=== PATIENT | male | born 1965 | race Caucasian/White ===

== ENCOUNTER 2021-08-23 01:10 | Emergency (ER) | payer OTHER, SELFPAY ==
[2021-08-23 01:18] VITALS: BP 165/94; PULSE 61; RESP 16; TEMP 36.6; O2SAT 99
--- NOTE | 2021-08-23 01:20 | DI.RAD.S_ITS ---
PROCEDURE: XR FOOT RT MIN 3V INDICATIONS: TECHNIQUE: 3 views of the foot were acquired. COMPARISON: [facility], , ANKLE 3 VIEWS RIGHT, 07/27/2007, 10:16. FINDINGS: Bones: No fractures or dislocations. No suspicious bony lesions. Prior medial calcaneal operative intervention, showing no evidence of device loosening or disruption. Soft tissues: No tibiotalar joint effusion. Achilles tendon appears normal. IMPRESSION: No acute trauma found. Prior operative intervention at the medial aspect of the calcaneus, longstanding in appearance. No evidence of device loosening. Dictated by: Garrett Ramirez M.D. on 08/23/2021 at 1:46 Approved by: Garrett Ramirez M.D. on 08/23/2021 at 1:50
--- NOTE | 2021-08-23 01:32 | ED_ITS ---
HPI - Extremity Injury (Lower) General Chief Complaint: Extremity Injury, Lower Stated Complaint: black/blue rt big toe, aching Time Seen by Provider: 08/23/21 01:19 Source: patient Mode of arrival: Ambulatory History of Present Illness HPI Narrative: Patient is a 56-year-old male here for evaluation of a right toe injury. Yesterday he states that he hit his toe on a rock. Has been ambulatory but over the past couple days has noticed increase discoloration and discomfort. Related Data Allergies Allergy/AdvReac Type Severity Reaction Status Date / Time No Known Allergies Allergy Uncoded 08/23/21 01:20 Review of Systems Musculoskeletal Musculoskeletal: Reports system reviewed and no additional complaints, except as documented and Reports as per HPI Integumentary/Breasts Skin/Breast: Reports system reviewed and no additional complaints, except as documented and Reports as per HPI Neurologic Neurologic: Reports system reviewed and no additional complaints, except as documented Hematologic/Lymphatic On Anticoagulants: No Patient History Medical History Healthy adult Social History Smoking Status: Never smoker Smoking Status: Never smoker alcohol intake frequency: holidays/special occasions only Substance Use Type: does not use Exam Initial Vital Signs Initial Vital Signs: Vital Signs Temperature 97.8 F 08/23/21 01:18 Pulse Rate 61 08/23/21 01:18 Respiratory Rate 16 08/23/21 01:18 Blood Pressure 165/94 H 08/23/21 01:18 Pulse Oximetry 99 08/23/21 01:18 HENMT Head: normal to inspection and normocephalic Cardio Pulses: dorsalis pedis present on the right Skin Other: Discoloration of the right great toe extends from the IP joint to just proximal at the end TP but joint. Neuro General: patient alert and patient awake Sensory Exam: no sensory deficits noted Extrem Other: Pain with movement of the great toe at the IP and MTP joint. Course Orders Ordered: ED Orders 08/23/21 01:20 XR foot RT min 3V Stat Vital Signs Vital signs: Vital Signs - 8 hr 08/23/21 01:18 Temperature 97.8 F Pulse Rate 61 Respiratory Rate 16 Blood Pressure 165/94 H Pulse Oximetry 99 MDM - Extremity Injury (Lower) Imaging Data Extremity x-ray #1: Radiologist's Impression: [address] [address] XRay Report Signed Patient: Franco Chavze MR#: [id number] : 1965 Acct:[id number] Age/Sex: 56 / M Date of Service: 08/23/21 Loc: ED Accession Number: [id number] ?? Procedure: XR foot RT min 3V Ordering Provider: Hudson Preciado D.O. PROCEDURE:? XR FOOT RT MIN 3V ? INDICATIONS: ? ? TECHNIQUE:? 3 views of the foot were acquired.? ? COMPARISON:? [facility], CR, ANKLE 3 VIEWS RIGHT, 07/27/2007, 10:16. ? FINDINGS:? ? Bones:? No fractures or dislocations.? No suspicious bony lesions.? Prior medial calcaneal operative intervention, showing no evidence of device loosening or disruption. ? Soft tissues:? No tibiotalar joint effusion.? Achilles tendon appears normal.? ? ? IMPRESSION:? No acute trauma found.? Prior operative intervention at the medial aspect of the calcaneus, longstanding in appearance.? No evidence of device loosening. ? ? Dictated by: Garrett Ramirez M.D. on 08/23/2021 at 1:46 ? ? Approved by: Garrett Ramirez M.D. on 08/23/2021 at 1:50?? MDM Narrative Medical decision making narrative: Neurovascularly intact, no fractures noted on the x-rays. Discoloration of the skin but no breaks in the skin. Offered a hard sole shoe the patient declined. We did discuss other treatments that he can try at home to include elevation and ice. He was given return precautions. He expressed understanding and agreement. Discharge Plan Departure Patient Disposition: Home Clinical Impression: Contusion of toe of right foot Instructions: Toe Sprain Activity Restrictions/Additional Instructions: There were no fractures noted on the x-rays. You can walk on your foot as tolerated. Keep it elevated. Keep ice over the area. You can take Tylenol /ibuprofen for discomfort. Contact your primary doctor for a follow-up. Return to the emergency department for any new or worsening symptoms. Stand Alone Forms: Work Release Note
[2021-08-23 02:27] VITALS: BP 160/88; PULSE 84; RESP 16; O2SAT 100
== END 2021-08-23 02:28 | disposition home or self-care (01) ==
PROVIDERS: Emergency Provider Emergency Medicine
DX: S90.111A Contusion of right great toe without damage to nail, initial encounter (principal); W22.8XXA Striking against or struck by other objects, initial encounter
CPT/HCPCS: 73630; 99283

== ENCOUNTER 2022-05-06 11:22 | Emergency (ER) | payer OTHER, SELFPAY ==
[2022-05-06 11:36] VITALS: BP 138/100; PULSE 69; RESP 14; TEMP 36.2; O2SAT 100; BMI 31.3
--- NOTE | 2022-05-06 14:50 | ED_ITS ---
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 He states that he has tenderness to palpation, pain with extension of his left shoulder vertically, denies any weakness, numbness or tingling, sensation changes. Denies any shortness of breath or chest pain, denies any nausea, vomiting or any other injury. States that his left pack is tender to palpation and a little swollen with some bruising. He denies any pain deep to this. He denies any other injury. States he has full range of motion of the left shoulder without any other injury. Related Data Previous Rx's Medication Instructions Recorded diclofenac sodium 1 % topical gel 2 g topical QID #100 grams 05/06/22 Allergies Allergy/AdvReac Type Severity Reaction Status Date / Time No Known Drug Allergies Allergy Verified 05/06/22 11:35 Review of Systems <EBONI Delaney - Last Filed: 05/06/22 14:56> Review of Systems Narrative: Review of systems is negative for acute abnormalities unless otherwise noted in HPI Patient History <EBONI Delaney - Last Filed: 05/06/22 14:56> Medical History Healthy adult Social History Smoking Status: Never smoker Smoking Status: Never smoker alcohol intake frequency: holidays/special occasions only Substance Use Type: does not use Exam <EBONI Delaney - Last Filed: 05/06/22 14:56> Narrative Exam Narrative: Reviewed vitals signs and nursing notes. General: cooperative, comfortable, in no acute distress, well groomed HEENT: symmetrical facial expressions, moist mucous membranes Cardiovascular: regular rate and rhythm, no peripheral edema, warm extremities Respiratory: normal effort, able to speak in complete sentences, without wheezing, stridor, or abnormal breath sounds. No retractions or tachypnea. Left pectoralis muscle with tenderness to palpation, mild ecchymosis, no tenderness with palpation of his ribs with anterior and lateral pressure breath sounds clear throughout GI: abdomen soft, nontender to palpation, nondistended, without masses, rebound tenderness or exquisite tenderness with exam. MSK: moves all extremities, neurovascularly intact, no weakness, normal tone Skin: brisk capillary refill, without pallor or erythema Neuro: normal speech and cognition, A&O x3, ambulatory, clear speech Psych: mental status is grossly normal, congruent mood, normal affect, pleasant and cooperative Initial Vital Signs Initial Vital Signs: Vital Signs Temperature 97.1 F L 05/06/22 11:36 Pulse Rate 69 05/06/22 11:36 Respiratory Rate 14 05/06/22 11:36 Blood Pressure 138/100 H 05/06/22 11:36 Pulse Oximetry 100 05/06/22 11:36 Oxygen Delivery Method 05/06/22 11:36 <Faisal Bravo MD - Last Filed: 05/06/22 16:53> Initial Vital Signs Initial Vital Signs: Vital Signs Temperature 97.1 F L 05/06/22 11:36 Pulse Rate 69 05/06/22 11:36 Respiratory Rate 14 05/06/22 11:36 Blood Pressure 138/100 H 05/06/22 11:36 Pulse Oximetry 100 05/06/22 11:36 Oxygen Delivery Method 05/06/22 11:36 Course <EBONI Delaney - Last Filed: 05/06/22 14:56> Vital Signs Vital signs: Vital Signs - 8 hr 05/06/22 11:36 05/06/22 15:23 Temperature 97.1 F L Pulse Rate 69 63 Respiratory Rate 14 20 Blood Pressure 138/100 H 131/89 Pulse Oximetry 100 100 Oxygen Delivery Method Room Air Room Air <Faisal Bravo MD - Last Filed: 05/06/22 16:53> Vital Signs Vital signs: Vital Signs - 8 hr 05/06/22 11:36 05/06/22 15:23 Temperature 97.1 F L Pulse Rate 69 63 Respiratory Rate 14 20 Blood Pressure 138/100 H 131/89 Pulse Oximetry 100 100 Oxygen Delivery Method Room Air Room Air MDM - Skin/Abscess/Foreign Bdy <Hortensia Bonilla [facility] - Last Filed: 05/06/22 14:56> [facility] Narrative Medical decision making narrative: This is a 57-year-old male who presents to the emergency department with a work- related injury of his left pectoralis major. He denies any pain deep to this, only has pain with exacerbation and stretching of this muscle. There is no palpable hematoma, rib fracture, abnormal breath sound, pain deep to the anterior of his left chest or any other associated [place]. [id number], encouraged him to follow-up with [facility], obtain a referral to physical therapy and to Orthopedics for further evaluation. He was given information about pectoralis injury, understands to follow-up [facility] and referred services as needed. Patient has been taking naproxen states this is good relief. He was prescribed diclofenac gel to use associated with this. Patient is appropriate and amenable to discharge home. Vital signs are stable on repeat examination is unremarkable. Patient has been informed of results. Patient has been given strict return to ER precautions for any new or worsening symptoms. Patient understands to follow up closely with outpatient providers as instructed. Patient understands plan and agrees to discharge home. All questions and concerns answered at this time. Discharge Plan Departure Patient Disposition: Home Clinical Impression: Work related injury Pectoralis muscle strain Qualifiers: Encounter type: initial encounter Qualified Code(s): S29.011A - Strain of muscle and tendon of front wall of thorax, initial encounter Instructions: DI for Pectoralis Major Repair Activity Restrictions/Additional Instructions: *You have been diagnosed with a left pectoralis strain/tear. I have added information about repair of this because it may be helpful to treat your pain in the similar ways as directions. Please follow-up with [facility] and ask for referral to physical therapy and to Orthopedics, [facility] is in [place] and [facility] is here in and a [place]. Please ask for referral to these places for evaluation of your left pectoralis major injury. Please use naproxen with food and water as you happened for your pain, warm or cool packs may be helpful as well, you can use topical diclofenac which will potentially help with pain as well. I wish you the best, follow-up with [facility] and good luck to you. [id number], please use this claim number for all of your appointments with your referrals. *What to do: *Please continue to take your regular medications as directed. [ x] New medication prescriptions sent to your pharmacy: [[facility] [place] ] [ ] New medication written as a paper prescription [ ] No new medications given *Please follow up with your primary care provider in 2-3 days, call for an appointment. Let them know you were seen in the Emergency Department and that we asked that you be seen for follow-up. We will electronically transmit a record of today's note if your PCP is in our system *If you do not have a primary care provider please contact [phone] to [facility] with one of the [facility] primary care providers. *Return to Emergency Department if you should have any new, worsening, or concerning symptoms, such as [fever greater than 101F, chills, worsening pain, persistent vomiting or other bothersome symptoms]. Prescriptions: New diclofenac sodium 1 % gel 2 g topical QID Qty: 100 0RF Rx Instructions: apply to single elbow, wrist or hand; for hand includes palm/fingers/back of hand Referrals: [facility] [Provider Group] [facility] [Outside] Provider,[facility]el[facility] SUBRAMAN[facility] [Primary Care Provider] - Visit Report Forms: Patient Portal/API <Faisal Bravo MD - Last Filed: 05/06/22 16:53> Cosign ED Attending Freddy Attestation: I was immediately available in the department for consultation. ?This documentation has been reviewed and I agree with assessment and plan. Supervised by Faisal Bravo MD
[2022-05-06 15:23] VITALS: BP 131/89; PULSE 63; RESP 20; O2SAT 100
== END 2022-05-06 15:15 | disposition home or self-care (01) ==
PROVIDERS: Emergency Provider Nurse Practitioner Critical Care Medicine
DX: S29.011A Strain of muscle and tendon of front wall of thorax, initial encounter (principal); X50.1XXA Overexertion from prolonged static or awkward postures, initial encounter; Y99.0 Civilian activity done for income or pay
CPT/HCPCS: 99281

== ENCOUNTER → 2022-12-01 07:57 | Outpatient (CLI) | payer OTHER, SELFPAY ==
--- NOTE | 2022-12-01 08:05 | DI.RAD.S_ITS ---
PROCEDURE: XR LUMBAR SPINE 2-3V INDICATIONS: SPONDYLOSTHESIS AT L5-S1 TECHNIQUE: 3 views of the lumbar spine were acquired. COMPARISON: [facility], CR, XR LUMBAR SPINE 2 OR 3 VIEWS, 05/27/2022, 15:05. [facility], MR, MR LUMBAR SPINE WITHOUT CONTRAST, 10/09/2022, 10:49. [facility], CR, L-SPINE 2-3 VIEWS, 07/27/2007, 10:08. FINDINGS: Bones: 5 [id number] vertebrae are present. T9-L2 posterior fixation rods present as before. 19 mm anterolisthesis L5 on S1, not significantly changed. 8 mm retrolisthesis L2 on L3 also similar to before. Multilevel degenerative changes of the lumbar spine. Soft tissues: Overlying bowel gas pattern is normal. No suspicious soft tissue calcifications. IMPRESSION: Similar anterolisthesis L5 on S1. Dictated by: Juan Trevizo M.D. on 12/01/2022 at 11:59 Approved by: Juan Trevizo M.D. on 12/01/2022 at 12:07
== END ==
PROVIDERS: Referring Provider Orthopaedic Surgery Orthopaedic Surgery of the Spine; Visit Provider Orthopaedic Surgery Orthopaedic Surgery of the Spine
DX: M43.17 Spondylolisthesis, lumbosacral region (principal)
CPT/HCPCS: 72100

== ENCOUNTER → 2023-02-21 09:10 | Outpatient (CLI) | payer OTHER, SELFPAY ==
[2023-02-21 11:11] LABS: Add Manual Diff / Slide Review NO; Basophils Absolute Auto 100 /uL (0-100); Basophils Percent Auto 1.1 % (0-2); Eosinophils Absolute Auto 100 /uL (0-450); Eosinophils Percent Auto 2.1 % (2-4); Hematocrit 40.6 % (41-53); Hemoglobin 13.9 g/dL (13.5-17.5); Lymphocytes Absolute Auto 1700 /uL (1100-4500); Lymphocytes Percent Auto 31.6 % (25-40); Mean Corpuscular HGB Conc 34.2 % (30-36); Mean Corpuscular Hemoglobin 30.2 PG (26-34); Mean Corpuscular Volume 88.5 fL (80-100); Monocytes Absolute Auto 400 /uL (0-900); Monocytes Percent Auto 7.3 % (3-14); Neutrophils Absolute Auto 3100 /uL (1500-7000); Neutrophils Percent Auto 57.9 % (50-75); Platelet Count 164 X10^3/uL (150-400); Red Blood Cell Count 4.59 X10^6/uL (4.5-5.9); Red Cell Distribution Width 13.5 % (11.6-14.8); White Blood Cell Count 5.4 X10^3/uL (4.5-11.0)
[2023-02-21 11:38] LABS: BUN Creatinine Ratio 16.3 (6-22); Blood Urea Nitrogen 17 mg/dL (9-20); Calcium 9.4 mg/dL (8.4-10.2); Carbon Dioxide 31 mmol/L (22-32); Chloride 103 mmol/L (98-107); Estimated Glomerular Filt Rate > 60 mL/min (>60); Glucose 68 mg/dL (70-100); HEMOLYSIS < 15 (0-50); Potassium 4.3 mmol/L (3.4-5.1); Sodium 141 mmol/L (137-145)
== END ==
PROVIDERS: Referring Provider Orthopaedic Surgery Orthopaedic Surgery of the Spine; Visit Provider Orthopaedic Surgery Orthopaedic Surgery of the Spine
DX: Z01.818 Encounter for other preprocedural examination (principal); Z01.812 Encounter for preprocedural laboratory examination
CPT/HCPCS: 36415; 80048; 85025; 93005

== ENCOUNTER → 2023-03-03 15:25 | Outpatient (CLI) | payer OTHER, SELFPAY ==
--- NOTE | 2023-03-03 15:37 | DI.CT.S_ITS ---
PROCEDURE: CT LUMBAR SPINE WO CON INDICATIONS: Spinal stenosis, lumbar region TECHNIQUE: Noncontrast 3 mm thick sections acquired from the T12 level to the sacrum. Sagittal and coronal reformats were constructed. For radiation dose reduction, the following was used: automated exposure control. COMPARISON: [facility], MR, MR LUMBAR SPINE WITHOUT CONTRAST, 10/09/2022, 10:49. FINDINGS: Image quality: Excellent. Bones: Mild levocurvature of the lumbar spine. Grade 2 anterolisthesis L5 on S1 with bilateral pars interarticularis defects. Grade 1 retrolisthesis of L2 on L3. No acute vertebral body compression fractures. Diffusely decreased osseous mineralization. No suspicious lytic or blastic bony lesions. Posterior stabilization rods extending from T9 through L2. Large Schmorl's node the superior endplate of T12 and T10. There are mild multilevel degenerative changes with mild osteophyte formation and mild facet arthropathy. There is no high-grade osseous central canal stenosis. Soft tissues: No retroperitoneal masses or hematomas. Visualized aorta is normal in caliber. IMPRESSION: 1. Postsurgical changes from elsa stabilization of the thoracolumbar spine. 2. Degenerative changes with grade 1 retrolisthesis of L2 on L3. Grade 2 anterolisthesis of L5 on S1 with bilateral pars interarticularis defects. 3. No high-grade osseous central canal stenosis by CT. Dictated by: Jeffrey Bateman M.D. on 03/03/2023 at 16:31 Approved by: Jeffrey Bateman M.D. on 03/03/2023 at 16:36
== END ==
PROVIDERS: Referring Provider Orthopaedic Surgery Orthopaedic Surgery of the Spine; Visit Provider Orthopaedic Surgery Orthopaedic Surgery of the Spine
DX: M48.062 Spinal stenosis, lumbar region with neurogenic claudication (principal); M43.16 Spondylolisthesis, lumbar region; M47.816 Spondylosis without myelopathy or radiculopathy, lumbar region; Z98.1 Arthrodesis status
CPT/HCPCS: 72131

== ENCOUNTER 2023-03-14 13:32 | Inpatient (IN) | payer OTHER, SELFPAY ==
[2023-03-03 13:59] VITALS: BMI 31.9
[2023-03-14] VITALS (14 sets, daily range): BP systolic 99–145; BP diastolic 42–87; PULSE 75–88; RESP 12–18; TEMP 36.1–37.4; O2SAT 90–99; BMI 31.9
--- NOTE | 2023-03-14 15:23 | PM.PREOP ---
Pre-operative Note COVID-19 Criteria for continued procedure: Expected advancement of disease process, Possibility delay results in more complex future surgery or treatment, Increased loss of function, Continuing or worsening of significant or severe pain, Deterioration of the patient's condition or overall health and Delay expected to result in less-positive ultimate med/surg outcome Interval Note History & Physical reviewed/Exam performed by Physician: Yes Changes to H&P: No
[2023-03-14] MEDS: CEFAZOLIN 2 GM/100 ML PREMIX 100 ML IV (16:23)
[2023-03-14] MEDS: ACETAMINOPHEN IV 1,000 MG/100 ML VIAL 400 MG IV (17:40)
[2023-03-14] MEDS: BUPIVACAINE 0.25% W/ EPI (PF) 10 ML VIAL 20 ML INJ (17:41)
[2023-03-14] MEDS: BUPIVACAINE LIPOSOME 266 MG/20 ML VIAL INJ (17:42)
--- NOTE | 2023-03-14 18:02 | DI.RAD.S_ITS ---
PROCEDURE: XR LUMBAR SPINE 2-3V INDICATIONS: L5-S1 TLIF TECHNIQUE: 2 views of the lumbar spine were acquired. COMPARISON: [facility], , XR LUMBAR SPINE 2-3V, 12/01/2022, 8:11. FINDINGS: 2 intraoperative fluoroscopy images demonstrate discectomy, laminectomy and posterior fusion at L5-S1. There is grade 2 anterolisthesis of L5 on S1. IMPRESSION: Postsurgical changes as described. Dictated by: Jagjit Villegas M.D. on 03/14/2023 at 19:29 Approved by: Jagjit Villegas M.D. on 03/14/2023 at 19:30
--- NOTE | 2023-03-14 19:06 | P.OP_ITS ---
Operative Date/Time/Diagnoses Date of procedure: 03/14/23 Time of procedure: 16:30 Pre-op diagnosis: 1. L5-S1 spondylolisthesis 2. L5-S1 spinal stenosis with radiculopathy Post-op diagnosis: same Procedure & Clinicians Procedure: 1. L5-S1 Postero-lateral and posterior interbody fusion 2. L5-S1 interbody cage placement. 3. L5-S1 decompressive laminectomy with bilateral facetecomies 4. L5-S1 Posterior non-segmental instrumentation 5. [place] of bone marrow from iliac crest 6. Utilization of microsurgical technique and operating microscope 7. Utilization of robotic assisted navigation Same procedure as scheduled: Yes Indications: Patient has been having chronic back pain and worsening lumbar radiculopathy. Patient failed multiple conservative management with worsening pain weakness and numbness in his lower extremity. Patient has been having difficulty performing activity of daily living. After discussing risks benefits of treatment options, patient elected proceed with surgery. Surgeon: Gina Cha Hydrogen Treater: Harper Foy Click Yes if Unassisted: No Anesthesia Type: General Operative Notes Closure Type: primary Specimen(s): none sent Prosthetic devices, grafts, tissues, transplants, or devices: GLobus CREO MIS screws, Rise cage Estimated Blood Loss (mL): 50 Procedure in detail: Patient was seen in the preoperative area. Risks and benefits of the surgery was discussed with the patient. Informed consent was obtained from the patient and placed in the chart. Surgical site was marked. Patient was taken to the operative room. General anesthesia was administered. Prophylactic antibiotic was given to the patient less than 30 min before the incision was made. Patient was placed into a prone position on the Gianfranco table. Patient's back was then prepped and draped in the sterile fashion. Time-out was performed at this time. After patient was prepped and draped, patient's PSIS was palpated and marked bilaterally. Small 1 cm incision was made over the PSIS for placement of the reference probes. Two trocar was placed into the PSIS 1 on each side. The reference probe was attached to the trocar of the reference apparatus. At this time the C-arm imaging was used to confirm AP and lateral of L5-S1 vertebrae and merged the C-arm imaging using the [employer] robotic navigation system with the CT of the lumbar spine. After successful merging was completed and confirmed, skin marker was used to karen out the skin incision using the [employer] robotic arm. Bilateral incision was made at this time. Pre templated trajectory was used and guided using the [employer] robotic navigation system for bilateral L5-S1 pedicle screw placement. This was done by using the robotic arm to guide the high-speed bur to make a cortical entry point. Next a drill was placed also using the robotic arm and guided using the navigation system drilling partially through bilateral L5, S1 pedicles. Next L5-S1 pedicle screws it was pre templated and measured was placed onto the power corporate driver and inserted into the pedicles bilaterally. After all 4 screws were placed C-arm imaging was taken of both AP and lateral to confirm the placement. Excellent placement of the screws were confirmed and a matched precisely with the pre planned screw placement using the navigation system. MARs retractor was inserted using [employer] guidence. Globus MARS retractors was placed inside the incision and docked onto the L5 lamina. Using microsurgical technique and operating microscope, a L5 laminectomy and L5-S1 facetectomy was performed using a Kerrison rongeur. Patient was found have severe lateral recess and neural foramen stenosis which was fully decompressed after the laminectomy facetectomy. The laminectomy and facetectomy was performed in order to decompress patient's cauda equina as well as the nerve roots exiting at the L5-S1 level. More than 75% of the facets were removed during the process of decompression rendering L5-S1 level grossly unstable and required a fusion procedure at the same time. The disc space at L5-S1 was identified, and a total diskectomy was performed at L5-S1 level. The endplates were decorticated using a rasp and shaver. The total diskectomy and decortication was performed at L5-S1 level in order to to accomplish a L5-S1 fusion. The local bone from the laminectomy and facetectomy was saved for local bone grafting. After the total diskectomy and decortication was completed, Trifecta bone graft material was combined with local bone that was harvested earlier. At this time, a separate skin is incision was made over the iliac crest. A Jamshidi needle was inserted into the iliac crest through a separate skin incision. 5 cc of bone marrow aspiration was obtained through the separate skin incision using a Jamshidi needle from the iliac crest. The bone marrow aspiration was combined with local bone and the [employer] bone grafting material. The bone grafting material was placed into the L5-S1 interbody space along with a expandable cage. The cage was expanded to its maximum height using the torque limiting screwdriver. The disc preparation as well as the cage insertion were also performed under navigation guidance. After the cage was placed, AP and lateral C-arm imaging was taken to confirm placement of the cage and excellent position was confirmed. Globus MARS retractor was inserted and docked onto the L5-S1 posterolateral gutter on the right side. Using the power drill, posterior-lateral decortication was performed at L5-S1 level until bleeding cortical bone was identified. The remaining bone grafting material was placed into the L5-S1 posterior lateral gutter he order to accomplish posterolateral fusion at the L5- S1 level. At this time the tulips were attached to the L5-S1 pedicle screw shanks. After measuring the length of the rods, they were inserted into the tulips of the pedicle screws and locked in place using locking caps and torque limiting screwdriver bilaterally. Total 4 caps and 2 titanium rods was used in order to complete the posterior instrumentation construct. After all the hardware was placed, and confirmed with AP and lateral C-arm imaging, the wound was then irrigated with sterile normal saline and packed with Ray-Alyssa gauze for 3 min to accomplish hemostasis. After the gauze was removed the deep fascia was closed with #1 Vicryl suture. The subcutaneous layer was closed with 2-0 Vicryl. The skin was closed with skin arnold. Patient tolerated the procedure well. There were no complications. The Operation could not have been safely performed without compromising the technical result or length of the procedure, without the assistance of a skilled rn surgical pcu. The rn surgical pcu was medically necessary for proper positioning, retraction and manipulation of instruments, proper exposure, surgical preparation, and manipulation of tissue. Neuro monitoring system was used to monitor patient's neurologic status throughout entire procedure. There was no disturbance of the neural monitoring signals throughout the case. Complications: none Post-operative Condition: stable Disposition: PACU Plan for aftercare: Admit to inpatient hospital
[2023-03-14] MEDS: HYDROMORPHONE 0.5 MG INJ IV (21:17)
--- NOTE | 2023-03-14 22:58 | PC.ADMIT ---
1166 [facility] Admission Note: The patient,Franco Chavez,57 y/o, was given written information regarding hospital policies, unit procedures and contact persons. Patient's smoking status: Never smoker. Vital Signs - 8 hr 03/14/23 19:20 03/14/23 19:25 03/14/23 19:31 Temperature 96.9 F L Pulse Rate 82 75 84 Respiratory Rate 16 12 12 Blood Pressure 103/64 110/72 106/68 Pulse Oximetry 90 L 93 96 Oxygen Delivery Method Room Air Room Air Room Air Oxygen Flow Rate 03/14/23 19:38 03/14/23 19:43 03/14/23 19:49 Temperature Pulse Rate 82 76 77 Respiratory Rate 13 13 18 Blood Pressure 112/74 111/66 120/69 Pulse Oximetry 90 L 95 95 Oxygen Delivery Method Room Air Room Air Room Air Oxygen Flow Rate 03/14/23 19:57 03/14/23 20:03 03/14/23 20:20 Temperature 98.3 F Pulse Rate 77 75 79 Respiratory Rate 17 13 16 Blood Pressure 99/42 L 109/58 L 145/71 H Pulse Oximetry 96 91 98 Oxygen Delivery Method Room Air Room Air Oxygen Flow Rate 0 03/14/23 20:50 03/14/23 21:20 03/14/23 21:45 Temperature 97.5 F L 98.2 F Pulse Rate 79 83 Respiratory Rate 18 18 Blood Pressure 122/71 114/69 Pulse Oximetry 94 91 Oxygen Delivery Method Room Air Oxygen Flow Rate 0 0 03/14/23 22:06 Temperature 99.3 F Pulse Rate 78 Respiratory Rate 16 Blood Pressure 115/79 Pulse Oximetry 96 Oxygen Delivery Method Oxygen Flow Rate 0 Patient admitted to room 216 at 2019 from PACU following back surgery earlier today. Is drowsy but responsive. Is alert and oriented. Breath sounds CTA with RA sat of 98% at time of admission. HRR w/BP of 145/71. Denied nausea. BT hypoactive and abdomen is soft. Dressing to back is CDI. Assisted to reposition onto right side with pillows for support at back and between knees; ice applied to back. Bilateral calf SCD's were applied. CMS intact. Did complain of 10/10 pain and was medicated with Dilaudid at 2116 after which he fell asleep. Did awaken and was assisted to get up to side of bed to urinate at 2233. Provided incentive spirometer but not given education related to drowsiness. Fall risk score is high and bed alarm is activated. Oriented to bed controls and call light.
[2023-03-14] MEDS: OXYCODONE IR 10 MG TABLET PO (23:05)
[2023-03-14] MEDS: hydrOXYzine pamoate 25 MG CAPSULE PO (23:05)
[2023-03-14] MEDS: LACTATED RINGERS 1,000 ML 125 ML IV (23:11)
[2023-03-15] MEDS: CEFAZOLIN 2 GM/100 ML PREMIX 100 ML IV ×2 (00:20→09:01)
[2023-03-15 04:29] VITALS: BP 122/66; PULSE 71; RESP 18; TEMP 36.7; O2SAT 97
--- NOTE | 2023-03-15 07:45 | PM.PNPO.1 ---
Subjective Subjective Date Patient Seen: 03/15/23 Time Patient Seen: 07:45 Interval history: Patient's pain is moderate. Denies fever or chills. No nausea or vomiting. Patient has his home to assist him. Exam Vital Signs (past 8 hours): - 03/15/23 04:29 Temperature 98.1 F Pulse Rate 71 Respiratory Rate 18 Blood Pressure 122/66 Pulse Oximetry 97 Oxygen Flow Rate 0 Oxygen Delivery Method Room Air Oxygen Flow Rate 0 Narrative Exam Narrative: 57-year-old male resting comfortably in bed in no apparent distress. Motor functions intact bilateral lower extremities. Const General: cooperative and comfortable Nutritional Appearance: average body habitus Orientation: alert Resp Effort & Inspection: normal respiratory effort and able to speak in complete sentences [facility] Medical History Calcaneus fracture, right (1987) GERD (gastroesophageal reflux disease) Healthy adult History of COVID-19 (~2019) Sciatica Spinal stenosis Surgical History H/O vasectomy (~1992) History of lumbar fusion (1987) History of photorefractive keratectomy (PRK) (2005) Hx of colonoscopy Social History household members: spouse Smoking Status: Never smoker alcohol intake: current Assessment & Plan Post-op Postoperative Procedures: Procedures Operation Date: 03/14/23 15:45 Actual Procedure Side Surgeon p L5-S1 TLIF-Robot Gina Cha MD Postoperative day: 1 Postoperative status: doing well Postoperative plan: routine post-op care Postoperative plan narrative: Disposition likely home today or tomorrow Quality VTE Deep Vein Thrombosis/Pulmonary Embolism Present on Admission: No
[2023-03-15] MEDS: ACETAMINOPHEN 325 MG TABLET 650 MG PO (07:54)
[2023-03-15] MEDS: OXYCODONE IR 10 MG TABLET PO (07:54)
[2023-03-15 08:29] VITALS: BP 116/76; PULSE 69; RESP 17; TEMP 36.6; O2SAT 98
--- NOTE | 2023-03-15 08:47 | OT.IP.EVAL ---
Current Diagnoses Spondylolisthesis, lumbar region (03/14/23) Spinal stenosis, lumbar region without neurogenic claudication (03/14/23) Surgery Performed Operation Date: 03/14/23 15:45 Actual Procedures p L5-S1 TLIF-Robot - Gina Cha MD Past Medical History (Last Reviewed 03/15/23 @ 10:14 by Perry Callejas PA-C) Calcaneus fracture, right (1987) GERD (gastroesophageal reflux disease) Healthy adult History of COVID-19 (~2019) Sciatica Spinal stenosis Surgical History (Last Reviewed 03/15/23 @ 10:14 by Perry Callejas PA-C) H/O vasectomy (~1992) History of lumbar fusion (1987) History of photorefractive keratectomy (PRK) (2005) Hx of colonoscopy Occupational Therapy Inpatient Evaluation/Re-Eval M1 PT/OT-IP Prior Functional Status Start: 03/15/23 09:28 Freq: NEEDED Status: Active Protocol: Document 03/15/23 09:29 [facility] (Rec: 03/15/23 09:42 [facility] [id number]) Medical Review Prior Functional Status Communication Independent. Mobility and Gait Independent with no device but had pain with prolonged sitting and standing. Social History Household Members spouse Living Arrangements House Number of Floors (Floors) Two Floors Number of Stairs To Enter/Railing? 2 steps with posts in the front and 13 steps with bilateral rails to the second floor to his bed room. Home Environment High Toilet,Walk in Shower Home Equipment Front Wheel Walker Additional Social History Comment Pt has a built in shower seat. M2 OT-IP Current Condition Start: 03/15/23 09:28 Freq: Status: Active Protocol: Document 03/15/23 09:29 [facility] (Rec: 03/15/23 09:42 [facility] [id number]) Occupational Therapy Current Condition Current Condition Evaluation Date 03/15/23 Treatment Diagnosis S/p L5-S1 TLIF Diagnosis Onset Date 03/14/23 M3 OT- IP Subjective and Pain Start: 03/15/23 09:28 Freq: Status: Active Protocol: Document 03/15/23 09:29 [facility] (Rec: 03/15/23 09:42 [facility] [id number]) OT- Subjective Occupational Therapy Visit Type Type Initial Evaluation Visit Start Time 08:47 Visit Stop Time 09:27 Total Visit Minutes 40 Occupational Therapy Visit Comments Patient Comments Pt agreed to do OT eval and already sitting in the recliner. Pt's and dad came in at the end of OT eval. OT Pain Assessment Pain When Pain Assessed At Rest Pain Present Pain Present Pain Reported Location Back Intensity 2 Scale Used Numeric (0 - 10) M4 OT- IP ADL's Start: 03/15/23 09:28 Freq: Status: Active Protocol: Document 03/15/23 09:29 [facility] (Rec: 03/15/23 09:42 [facility] [id number]) OT [id number] General Evaluation Self-Feeding Ability Independent OT ADL-Grooming Comments OT Grooming Comments Not performed. OT ADL-Oral Care Comments Oral Care Comments Educated best to spit into a cup or hinge at his hips to best follow his back precautions. OT ADL-Dressing General Eval Lower Body Dressing Ability Standby Assistance Areas Needing Assistance Shoes Comments OT Dressing Comments Educated pt on use of sock aid and photographic process worker. Pt to have his assist and suggested pt get LB dressing equipment. OT ADL-Toileting General Evaluation Toileting Ability Standby Assistance Comments OT Toileting Comments Pt able to sit on the toilet and just needing cues for safety to hinge at his hips and not twist in order to flush the toilet. OT ADL-Bathing Comments OT Bathing Comments Not performed. Suggested pt do a dry run first at home to make sure the built in seat is high enough or to get a shower chair. M5 OT- IP IADL's Start: 03/15/23 09:28 Freq: Status: Active Protocol: Document 03/15/23 09:29 [facility] (Rec: 03/15/23 09:42 [facility] [id number]) OT-Instrumental Activities of Daily Living Deficits IADL Deficits Identified Deficits Home Safety Awareness Awareness of Need for Assistance at Home Good Awareness Ability to Problem Solve Emergency Able to Problem Solve Situations Spa Coordinator Spa Coordinator Caregiver Provides Assist M6 OT- IP Functional Cognition Start: 03/15/23 09:28 Freq: Status: Active Protocol: Document 03/15/23 09:29 [facility] (Rec: 03/15/23 09:42 [facility] [id number]) Cognitive Factors Limiting Selfcare Function Cognitive Ability Level of Alertness Alert Patient Orientation Name,Age,Birthday,Month,Date, Year,Day of Week,Place, Situation Attention Span Ability Capable of Focused Attention, Capable of Sustained Attention Ability to Follow Commands Able to Follow Multi-Step Commands Memory Description No Deficits Noted Safety Awareness Underestimates Need for Assistance Problem Solving Ability No deficits Noted Executive Function Ability No Deficits Noted Cognitive Comments Cognitive Assessment Comments Pt needing initial education for back precautions. Pt needing cues to slow down and incorporate his precautions during ADl and mobility needs. OT- Vision and Hearing OT- Hearing Assessment OT- Hearing Assessment WFL OT- Vision Assessment Visual Acuity Glasses For Reading Visual Attentiveness WFL Occular Pursuits WFL M7 OT- IP Mobility and Balance Start: 03/15/23 09:28 Freq: Status: Active Protocol: Document 03/15/23 09:29 [facility] (Rec: 03/15/23 09:42 [facility] [id number]) OT- Bed Mobility Assessment Rolling Type of Rolling Log Rolling Level of Assistance Standby Assistance Supine to Sit Supine to Sit Assist Standby Assistance Sit to Supine Sit to Supine Assist Standby Assistance Scooting Scooting to Edge of Bed Standby Assistance OT-Transfer Assessment Sit to and From Stand Sit to and from Stand Standby Assistance,Contact Guard Assistance Transfers Transfer Ability Standby Assistance Technique Transfer Destination Bed,Chair,Toilet Transfer Technique Stand Step Pivot Devices Transfer Assistive Devices Gait Belt,Front Wheeled Walker Comments Mobility Comments CGA to stand to FWW and cues to push on the bed to stand. BP sitting 134/97 and after using the bathroom 123/80 and not complaining of any symptoms. O2 on RA 96%. Pt SBA once up and using the FWW. Able to talk through how to [place]/doff the gait belt with pt's . OT- Balance Assessment Sitting Balance and Reactions Static Sitting Balance Ability Normal Dynamic Sitting Balance Ability Good Standing Balance and Reactions Static Standing Balance Ability Good Dynamic Standing Balance Ability Good M9 OT- IP Assessment and Plan Start: 03/15/23 09:28 Freq: Status: Active Protocol: Document 03/15/23 09:29 [facility] (Rec: 03/15/23 09:42 [facility] [id number]) OT Summary Assessment and Plan Potential Rehabilitation Potential Excellent Analytic Complexity at Evaluation Low Summary OT Impairments Pain,Functional Mobility, Dressing,Bathing,Shower Transfers Progress Towards Goals Progressing Toward Goals Assessment Summary Pt low complexity and main barrier is stairs. Pt has a supportive and elderly dad to assist him at home. Pt looking to go home when medically stable. Goals Grooming Goal Independent Dressing Goal Independent Toileting Goal Independent Bathing Goal Independent Toilet Transfer Goal Independent Shower Transfer Goal Independent Days to Meet Goals 5 Frequency of Treatment Frequency Of Treatment Once a Day Treatment Plan OT Treatment Plan ADL Training,Functional Mobility,Patient/Family Education,Discharge Planning Discharge Recommendations OT Discharge Recommendations Home with Assistance Home Equipment Needs possibly a shower chair Transportation Needs at Discharge Private Vehicle
[2023-03-15] MEDS: PANTOPRAZOLE DR 20 MG TABLET PO (09:01)
[2023-03-15] MEDS: LORATADINE 10 MG TABLET PO (09:01)
[2023-03-15] MEDS: DOCUSATE 100 MG CAPSULE PO (09:01)
[2023-03-15] MEDS: polyethylene glycoL 3350 17 GM POWD.PACK PO (09:01)
--- NOTE | 2023-03-15 10:10 | PT.IIE ---
Current Diagnoses Spondylolisthesis, lumbar region (03/14/23) Spinal stenosis, lumbar region without neurogenic claudication (03/14/23) Surgery Performed Operation Date: 03/14/23 15:45 Actual Procedures p L5-S1 TLIF-Robot - Gina Cha MD Surgical History (Last Reviewed 03/15/23 @ 10:14 by Perry Callejas PA-C) H/O vasectomy (~1992) History of lumbar fusion (1987) History of photorefractive keratectomy (PRK) (2005) Hx of colonoscopy Medical History (Last Reviewed 03/15/23 @ 10:14 by Perry Callejas PA-C) Calcaneus fracture, right (1987) GERD (gastroesophageal reflux disease) Healthy adult History of COVID-19 (~2019) Sciatica Spinal stenosis Physical Therapy Inpatient Evaluation/Re-Eval M1 PT/OT-IP Prior Functional Status Start: 03/15/23 09:28 Freq: NEEDED Status: Discharge Protocol: Document 03/15/23 09:29 [facility] (Rec: 03/15/23 09:42 [facility] [id number]) Medical Review Prior Functional Status Communication Independent. Mobility and Gait Independent with no device but had pain with prolonged sitting and standing. Social History Household Members spouse Living Arrangements House Number of Floors (Floors) Two Floors Number of Stairs To Enter/Railing? 2 steps with posts in the front and 13 steps with bilateral rails to the second floor to his bed room. Home Environment High Toilet,Walk in Shower Home Equipment Front Wheel Walker Additional Social History Comment Pt has a built in shower seat. M1 PT/OT-IP Prior Functional Status Start: 03/15/23 13:43 Freq: NEEDED Status: Active Protocol: Document 03/15/23 10:10 [facility] (Rec: 03/15/23 13:52 [facility] [id number]) Medical Review Prior Functional Status Medical History Reviewed Yes Communication able to make needs known Mobility and Gait pt stated that he is inpendent with all mobilities and ambulation without AD Social History Household Members spouse,family Living Arrangements House Number of Floors (Floors) Two Floors Number of Stairs To Enter/Railing? 2 platform steps to enter the house 13 steps B rails to get to 2nd floor bedroom Home Environment High Toilet,Walk in Shower, Built-In Shower Seat Home Equipment Front Wheel Walker,Hand Held Shower Employment Status [employer] Employed Additional Social History Comment pt works as a chief of police M2 PT-IP Current Condition Start: 03/15/23 13:43 Freq: NEEDED Status: Active Protocol: Document 03/15/23 10:10 [facility] (Rec: 03/15/23 13:52 [facility] [id number]) Physical Therapy Current Condition Current Condition Evaluation Date 03/15/23 Treatment Diagnosis s/p L5S1 TLIF; difficulty in walking Onset Date 03/14/23 M3 PT-IP Subjective Start: 03/15/23 13:43 Freq: NEEDED Status: Active Protocol: Document 03/15/23 10:10 [facility] (Rec: 03/15/23 13:52 [facility] [id number]) Subjective Physical Therapy Visit Type Type Initial Evaluation Visit Start Time 10:10 Visit Stop Time 10:36 Total Visit Minutes 26 Number of POLITICAL DIRECTOR Visits 0 Physical Therapy Visit Comments Patient Comments agreeable to do PT Therapy Pain Assessment Pain When Pain Assessed At Rest Pain Present Pain Present Pain Reported Location Back Intensity 2 Scale Used Numeric (0 - 10) Pain Management Techniques Apply Cold,Distraction, Modification of Treatment,Re- positioning,Timing of Activity with Medications M4 PT-IP Mobility and Gait Start: 03/15/23 13:43 Freq: NEEDED Status: Active Protocol: Document 03/15/23 10:10 [facility] (Rec: 03/15/23 13:52 [facility] [id number]) PT-Bed Mobility Assessment Rolling Type of Rolling Log Rolling Level of Assist Standby Assistance Supine to Sit Supine to Sit Standby Assistance Sit to Supine Sit to Supine Standby Assistance PT-Transfer Assessment Sit to and From Stand Sit to and from Stand Standby Assistance Equipment Transfer Assistive Device Gait Belt,Front Wheeled Walker Orthotic/Prosthetic Devices or Brace: No Transfers Transfer Destination Bed Transfer Technique ambulated Transfer Ability Level of Assist Standby Assistance,1 Person Assistance,Use of Upper Extremities Comments Mobility Comments pt sitting on the chair. spouse and pt's father in room with pt. pt able to recall his back precautions. completed sit to stand from the chair SBA and ambulated in room ~ 30 ft using FWW SBA. sat on EOB and demonstrated log roll sit<>supine SBA. pt agreed to do stairs. sit to stand from EOB SBA and ambulated towards the stairs using FWW SBA. pt with antalgic gait with increase LLE ER. cued pt to correct. pt completed up/down platform step using FWW SBA to CGA with cues and repeated again without cues needed. pt completed up/down steps using B rails SBA. pt ambulated back to his room using FWW SBA and sat back on the chair. positioned on the chair. call light and table placed within reach. pt and family without further concerns. Gait Assessment Gait Gait Assistance Required: Standby Assistance Distance (Feet) 200 Able to Maintain Weight Bearing Status Yes During Gait Assistive Devices Assistive Device Gait Belt,Front Wheeled Walker Orthotic/Prosthetic Devices or Brace: No Gait Deviations General Gait Pattern Decreased Stride Length, Decreased Feet Clearance Factors Limiting Gait Function Factors Limiting Gait Function Decreased Activity Tolerance, Decreased Strength,Limited Range of Motion,Pain,Poor Balance Stair Climbing Assessment Evaluation Level of Assist On Stairs Contact Guard Assistance,1 Person Assistance Devices Stair Climbing Assistive Devices Front Wheel Walker,Left Railing,Right Railing Technique/Endurance Stair Climbing Direction Ascend and Descend Stair Climbing Technique Step to Step Number of Steps Climbed 3 Query Text: Stair Climbing Set # Repetitions (reps) 2 PT-Balance Assessment Sitting Balance and Reactions Static Sitting Balance Ability Normal Dynamic Sitting Balance Ability Good Standing Balance and Reactions Static Standing Balance Ability Good Dynamic Standing Balance Ability Fair Device Used FWW M5 PT-IP Objective Assessments Start: 03/15/23 13:43 Freq: NEEDED Status: Active Protocol: Document 03/15/23 10:10 [facility] (Rec: 03/15/23 13:52 [facility] [id number]) Orientation Orientation/Cognition Level of Alertness Alert Orientation Name,Age,Birthday,Date,Place, Situation Safety Awareness Understands Safety Issues Memory Description No Deficits Noted Gross Range of Motion Lower Extremity ROM Assessment Within Functional Limits Strength Lower Extremity Strength Assessment Within Functional Limits Coordination Assessment Gross Coordination Gross Coordination WNL Sensation Assessment Sensation Gross Sensation WNL Muscle Tone Muscle Tone WNL Yes M6 PT-IP Treatment Start: 03/15/23 13:43 Freq: NEEDED Status: Active Protocol: Document 03/15/23 10:10 [facility] (Rec: 03/15/23 13:52 [facility] [id number]) Physical Therapy Treatment Education Education Provided Precautions,Weight Bearing Status,Safety M7 PT-IP Assessment and Plan Start: 03/15/23 13:43 Freq: NEEDED Status: Active Protocol: Document 03/15/23 10:10 [facility] (Rec: 03/15/23 13:52 [facility] [id number]) PT Summary Assessment and Plan Potential Rehabilitation Potential Good Status of Condition at Evaluation Stable Summary Impairments Pain,ROM,Strength,Balance, Coordination,Sensation,Tone, Cognition,Bed Mobility, Transfers,Gait,Activity Tolerance Assessment Summary pt s/p L5S1 TLIF POD1. pt requiring SBA to CGA with mobility using FWW and plans to go home with his spouse to assist him. pt may go home when medically stable. Goals Bed Mobility Goal Independent Transfer Goal Independent,Front Wheeled Walker Gait Goal Independent,Front Wheel Walker Gait Distance 300 Other Goals up/down 2 platform steps using FWW mod I up/down 3 steps B rails mod I Days to Meet Goals 5 Frequency of Treatment Frequency Of Treatment Twice a Day Treatment Plan Physical Therapy Treatment Plan Bed Mobility Training,Transfer Training,Gait Training, Therapeutic Exercise,Balance Retraining,Post Op Education, Discharge Planning,Hot or Cold Pack,Neuromuscular Re-ed, Coordination Retraining,Manual Therapy Precautions Lumbar Precautions Log Roll,No Twisting,Limit Bending,Lifting Restriction of 10 lbs,Gait Belt above Incisional Area Recommendations To Nursing Amount of Assist Needed 1 Person Assist Discharge Recommendations PT Discharge Recommendations Home with Assistance Transportation Needs at Discharge Private Vehicle
--- NOTE | 2023-03-15 10:12 | P.DS_ITS ---
History of Present Illness History of Present Illness Date Patient Seen: 03/15/23 Time Patient Seen: 07:45 Chief complaint: back pain Narrative: see progress note Discharge Providers Provider Date of admission: 03/14/23 13:32 Discharge Date: 03/15/23 Primary care physician: Kelley SUBRAMANIAN Provider Consults: 03/14/23 20:27 Consult to Occupational Therapy Evaluate & Treat Comment: Physician Instructions: Evaluate and treat Consult to Physical Therapy Evaluate & Treat Comment: Physician Instructions: Evaluate and Treat Discharge provider: Perry Callejas PA-C Summary Hospital Course Discharge Diagnosis: ?L5-S1 spondylolisthesis 2. L5-S1 spinal stenosis with radiculopathy Post-op diagnosis: same Hospital Course: 1. L5-S1 Postero-lateral and posterior interbody fusion 2. L5-S1 interbody cage placement. 3. L5-S1 decompressive laminectomy with bilateral facetecomies 4. L5-S1 Posterior non-segmental instrumentation 5. [place] of bone marrow from iliac crest 6. Utilization of microsurgical technique and operating microscope 7. Utilization of robotic assisted navigation Same procedure as scheduled: Yes Indications: Patient has been having chronic back pain and worsening lumbar radiculopathy. Patient failed multiple conservative management with worsening pain weakness and numbness in his lower extremity.? Patient has been having difficulty performing activity of daily living.? After discussing risks benefits of treatment options, patient elected proceed with surgery. Surgeon: Gina Cha Cafe Cook: Harper Foy Click Yes if Unassisted: No Anesthesia Type: General Operative Notes Closure Type: primary Specimen(s): none sent Prosthetic devices, grafts, tissues, transplants, or devices: GLobus CREO MIS screws, Rise cage Estimated Blood Loss (mL): 50 patient admitted to the hospital for the above-mentioned procedure. Patient consented to the same. Patient underwent lumbar fusion on March 14, 2023. Patient back in his room recovering well as in stable condition. Patient will w ork with physical therapy. Limit bending, twisting, lifting. Multimodal pain management. Discharge home today in stable condition. Exam Vital Signs (past 8 hours): - 03/15/23 04:29 03/15/23 08:29 Temperature 98.1 F 97.8 F Pulse Rate 71 69 Respiratory Rate 18 17 Blood Pressure 122/66 116/76 Pulse Oximetry 97 98 Oxygen Flow Rate 0 0 Oxygen Delivery Method Room Air Oxygen Flow Rate 0 Narrative Exam Narrative: See progress note Const General: cooperative and comfortable Nutritional Appearance: average body habitus PFSH Medical History Calcaneus fracture, right (1987) GERD (gastroesophageal reflux disease) Healthy adult History of COVID-19 (~2019) Sciatica Spinal stenosis Surgical History H/O vasectomy (~1992) History of lumbar fusion (1987) History of photorefractive keratectomy (PRK) (2005) Hx of colonoscopy Social History household members: spouse Smoking Status: Never smoker alcohol intake: current Discharge Assessment & Plan Assessment and Plan Assessment: patient progressing as expected status post lumbar fusion Plan of Treatment: multimodal pain management limit bending, twisting, lifting discharge home today in stable condition Discharge Plan Discharge Plan Patient Disposition: Home Discharge orders & Medications Prescriptions: New acetaminophen 325 mg Tablet 650 mg PO Q6H PRN (Reason: Fever/Mild Pain (1-3)) Qty: 60 0RF docusate sodium 100 mg Capsule 100 mg PO BID Qty: 20 0RF hydroxyzine pamoate 25 mg Capsule 25 mg PO Q4HR PRN (Reason: Nausea And Vomiting) Qty: 20 0RF oxycodone 10 mg Tablet 10 mg PO Q3H PRN (Reason: Pain, Severe (7-10)) Qty: 40 0RF Continued cetirizine [Zyrtec] 10 mg Tablet 10 mg PO DAILY omeprazole 20 mg Capsule,Delayed Release(Dr/Ec) 20 mg PO DAILY Discontinued acetaminophen 500 mg Tablet 500 mg PO DAILY PRN (Reason: Pain) indomethacin 75 mg Capsule, Extended Release 75 mg PO BID Follow up/Referrals: Gina Cha MD [Physician] - As previously scheduled (Follow up with Jackelyn Anderson PA-C, on 03/25/2023 @ 1:00 pm at [facility] office in [place].) Provider,Kelley SUBRAMANIAN [Primary Care Provider] - Diet/Activity/Treatments Diet: Diet as Tolerated Activity: No deep bending or twisting at the waist. No lifting more than 10 pounds. Cold/Heat Therapy: Heating pad to low back as needed for pain. Skin/Wound/Dressing Care Report to your healthcare provider any signs of infection, such as:: chills, fever, night sweats, unusual drainage and unusual redness Dressing: May shower. Keep dressing as dry as possible. If dressing becomes wet or dirty, may replace with clean, dry gauze. No bathing or otherwise soaking incisions. Do not apply any creams, lotions or ointments to incisions. Visit Report/Discharge Packet Instructions: DI for Prescription Opioid Use, DI for Transforaminal Lumbar Interbody Fusion Stand Alone Forms: Patient Portal/API, Stroke Signs & Symptoms, Surgery Discharge Discharge Data Primary Care Provider: [facility] Deep [facility] Thrombosis/Pulmonary Embolism Present on Admission: No
--- NOTE | 2023-03-15 13:12 | CM.DANOTE ---
Addendum entered by FLOWER Williamson 03/15/23 13:25: PCP Dr. Andre at the [facility] Payer: [employer] and self pay Original Note: DCP Assessment Note: Patient is a 57yo male here for a planned TLIF with Dr. Cha on 03/14 HYDRAULIC GOVERNOR ASSEMBLER reviewed EMR. Per OT, patient is safe to dc home with family assistance. HYDRAULIC GOVERNOR ASSEMBLER entered room and introduced self and role. Patient was sitting up in chair and appeared A/Ox4. Patient was accompanied by spouse Jennifer ([phone]) and father. Patient reports being active and independent. Patient drives and lives at home in [place] with spouse and father. Patient reports he's feeling really good. Plan: patient will d/c home with family today in POV. CM team will continue to follow as necessary. FLOWER Williamson Discharge Planning/Care Management CM Discharge Assessment Start: 03/15/23 13:09 Freq: Status: Discharge Protocol: Document 03/15/23 13:11 SL (Rec: 03/15/23 13:12 [id number]) Discharge Planning Assessment Assigned Precipitation Equipment Tender FLOWER Crisostomo DPOA/Assigned Designee Name Jennifer (spouse) Contact Information [phone] Advance Directives? No History Provided By Patient,Medical Record Prior Living Arrangements House Household Members spouse Type of transporation used prior to Drives own vehicle admit Independent with ADL's Yes Is patient alert and oriented? Yes Caregiver for Another No Discharge Plan Home Referrals Initiated None needed Whiteboard Updated in Patient Room with Yes name and ext. # of Precipitation Equipment Tender Review Status In Process Next Review Type Continued Stay Review Pre-Anesthesia Assessment Start: 03/03/23 13:59 Freq: Status: Complete Protocol: Document 03/03/23 13:59 CAB (Rec: 03/03/23 14:23 CAB [id number]) Pre-Anesthesia Assessment Preferred Name Franco Patient Information Reviewed Via Phone Assessment Assessment Completed With Patient Diagnostic Results BMP/CMP,CBC,EKG Comment Labs/EKG 02/21/23 Primary Care Provider Payam Andre Seen Specialist in Last 12 Months Yes Specialist Seen Orthopedist Primary Language [place] Citizen Sound Installation Worker Required No Height 170.18 cm Weight 92.533 kg Body Mass Index (BMI) 31.9 Hearing Ability Normal Visual Assist Glasses Dentition Type Partial- Upper Barriers to Learning None Hx Anesthesia Reactions No Hx Family Anesthesia Reaction Yes: Son has a reaction to propofol Hx Malignant Hyperthermia No Hx Blood Transfusions Yes: 1987 Hx Blood Transfusion Reaction No Anesthesia Review Requested No [facility] No alcohol intake current alcohol intake frequency holidays/special occasions only Smoking Status Never smoker Substance Use Type does not use Pain Present Pain Reported Musculoskeletal Symptoms Back Pain,Radiating Pain into Limb History of Falling (Recent or History of No ) Patient is completely paralyzed or No completely immobile Mental Status Oriented to own ability Is patient on oxygen? No Does patient have CAREY/SOB No Hx Sleep Apnea No Currently Taking a Beta Rohit No Can You Climb a Flight of Stairs Without Yes SOB Hx Chest Pain No Hx SOB No Hx Syncope or Dizziness No Anti-Coagulant Therapy No Has a Naturopathic Oncology Provider No Cardiac Testing No Hx Pacemaker/ICD No Pacemaker Rep Required? No Cardiac Clearance Received Not Applicable Diet Type At Home Regular Dysphagia No Gastrointestinal Symptoms Reflux Chronic UTI No Bladder Pattern Nocturia Urinary Catheter Present No Hx Urinary Self Catheterization No Diabetes No Presence of External or Internal Medical Yes: Lumbar hardware Devices Received a COVID vaccine? Yes Received all doses? Yes Marital Status Lives With spouse Current Living Arrangements House Number of Floors (Floors) Two Floors Number of Stairs To Enter/Railing? 2 Support System Spouse Does the Patient Have Assistance After Yes Surgery Patient Discharge Plan Description Return Home Comment Pt advised 1-3 day length of stay per surgeon Feels Safe in Current Environment Yes Been Physically Hurt or Threatened By a No Person in Current Environment Do you have thoughts of harming yourself None or others? Are you currently considering suicide? No Do you have a plan to hurt yourself or No Plan others? Do You Have Any Spiritual Beliefs That No May Affect Your HC Choices? Do You Have Any Cultural Practices That No May Affect Your HC Choices? Comment Oriental Orthodox Who Can We Speak to About Patient's Care Family, friends Identifying Code for Release of Patient Declines to issue Information Health Care Proxy/Next of Kin Jennifer () Health Care Proxy Emergency Contact Name Raven (daughter) Emergency Contact Advance Directives? No Power of Instrumentation Technologist No PAC Instructions Durable medical equipment, Medications to take/avoid, Nasal antibiotic,No ETOH/ petroleum product on skin DOS, NPO,Pre-surgical wash,Sensory aids,Sturdy shoes/comfortable clothes,Do not bring valuables and remove jewelry
== END 2023-03-15 11:39 | disposition home or self-care (01) | DRG 304 ==
PROVIDERS: Admitting Provider Orthopaedic Surgery Orthopaedic Surgery of the Spine; Referring Provider Orthopaedic Surgery Orthopaedic Surgery of the Spine; Visit Provider Orthopaedic Surgery Orthopaedic Surgery of the Spine
PROC: 0SG30AJ Fusion of Lumbosacral Joint with Interbody Fusion Device, Posterior Approach, Anterior Column, Open Approach (ICD-10-PCS; principal; 2023-03-14 15:45)
DX: M43.17 Spondylolisthesis, lumbosacral region (principal); M48.07 Spinal stenosis, lumbosacral region; M54.17 Radiculopathy, lumbosacral region; K21.9 Gastro-esophageal reflux disease without esophagitis
CPT/HCPCS: 72100; 76000; 97161; 97165; 97535; C1713; C9290; J0131; J0690; J1100; J1170; J2405; J2704